=== PATIENT | male | born 1970 | race Caucasian/White ===

== ENCOUNTER 2017-08-17 07:44 | Emergency (ER) | payer OTHER ==
[~2017-08-17] VITALS: Ht 172.7 cm; Wt 77.8 kg
[2017-08-17] MEDS ORDERED: FLEXERIL10 MG PO (09:02)
[2017-08-17] MEDS ORDERED: MOTRIN800 MG PO (09:02)
[2017-08-17 09:19] VITALS: BP 133/86
== END 2017-08-17 09:40 | disposition home or self-care (01) ==
LOC: EME 07:44
DX: S13.4XXA Sprain of ligaments of cervical spine, initial encounter (principal); V43.52XA Car driver injured in collision with other type car in traffic accident, initial encounter; Y92.410 Unspecified street and highway as the place of occurrence of the external cause; H53.8 Other visual disturbances; R42 Dizziness and giddiness; R51 Headache; R26.2 Difficulty in walking, not elsewhere classified
CPT/HCPCS: 70450; 72125; 99281; 99284